=== PATIENT | female | born 1985 | race Two or more races ===

== ENCOUNTER 2018-04-13 06:43 | Emergency (ER) | payer OTHER ==
[2018-04-13 06:52] VITALS: BP 126/86; PULSE 88; TEMP 98; BMI 36.0
--- NOTE | 2018-04-13 07:22 | PDOC ---
History of Present Illness - General Chief Complaint: Pain, Acute Stated Complaint: LT ANKLE PAIN History Source: Patient Exam Limitations: No Limitations - History of Present Illness Initial Comments: 04/13/18 07:23 Ms Farris is a 33 yo F with a h/o Guzman fracture of the right foot She presents to the ER with a complaint of left ankle pain Pt states she was at a friend's [employer], spent the night dancing She denies direct trauma to the ankle, inversion injury, falls Pain is 8/10, located in the left lateral malleolus (+) swelling Pt has not tried anything to improve her pain Pt is ambulatory but this is painful PMH: denies PSH: Meds: denies ALL: NKDA Social: denies drug or tobacco use FH: non contributory ROS: GENERAL/CONSTITUTIONAL: No: fever, chills CARDIOVASCULAR: No: chest pain, lightheadedness, palpitations, syncope RESPIRATORY: No: cough, shortness of breath, wheezing, hemoptysis, stridor. GASTROINTESTINAL: No: nausea, vomiting, diarrhea, abdominal pain GENITOURINARY: No: dysuria, hematuria MUSCULOSKELETAL: Yes: left ankle pain No: back pain, neck pain SKIN: No:bruising NEUROLOGIC: No: headache, vertigo, paresthesias, weakness PE: GENERAL: The patient is in no acute distress. HEAD: Normal with no signs of trauma. EYES: PERRLA, EOMI, sclera anicteric, conjunctiva clear. ENT: Ears normal, nares patent, oropharynx clear without exudates. Moist mucous membranes. NECK: Normal range of motion, supple without lymphadenopathy, JVD, or masses. LUNGS: Breath sounds equal, clear to auscultation bilaterally. HEART:Regular rate and rhythm, normal S1 and S2 without murmur, rub or gallop. ABDOMEN: Soft, nontender, normoactive bowel sounds. No guarding, no rebound. No masses palpable. EXTREMITIES: Normal range of motion NEUROLOGICAL: Cranial nerves II through XII grossly intact. Normal speech. No focal neurological deficits. MUSCULOSKELETAL: No deformities, swelling, ecchymosis of the lower extremities bilaterally. No tenderness to palpation of the DIPs, PIPs, MTPs, phalanges, metatarsals, tarsals, medial malleolus, Achilles, tibia, fibula, knee, hip bilaterally. (+) Left lateral malleolus tender to palpation. Full range of motion of the lower extremities intact. Patient able to bear weight. Ambulating with a limp. Dorsalis pedis and posterior tibialis pulses 2+ and equal bilaterally. Capillary refill less than 2 seconds bilaterally. Neurologic: The patient is awake, alert, oriented x3. Gross motor and sensory exam is found to be intact. Sensation of distal lower extremities intact. 5/5 muscle strength of the lower extremities. DTRs, Achilles, patellar 1-2+ and equal bilaterally. SKIN: Warm, Dry, normal turgor, no rashes or lesions noted. 04/13/18 07:37 04/13/18 09:31 Past History - Past Medical History Allergies/Adverse Reactions: Allergies Allergy/AdvReac Type Severity Reaction Status Date / Time No Known Allergies Allergy Verified 11/27/14 18:29 Home Medications: Ambulatory Orders Acetaminophen W/ Codeine #3 [Tylenol # 3 -] 1 tab PO Q8H PRN #9 tablet MDD 3 06/21 Asthma: Yes COPD: No - Suicide/Smoking/Psychosocial Hx Smoking History: Current some day smoker Number of Cigarettes Smoked Daily: 3 Information on smoking cessation initiated: Yes 'Breaking Loose' booklet given: 04/13/18 Hx Alcohol Use: Yes (OCCASIONALLY) Substance Use Type: Alcohol *Physical Exam - Vital Signs Last Vital Signs Temp Pulse Resp BP Pulse Ox 98 F 88 18 126/86 99 04/13/18 06:49 04/13/18 06:49 04/13/18 06:49 04/13/18 06:49 04/13/18 06:49 Medical Decision Making - Medical Decision Making 04/13/18 07:42 Clinical impression: Most likely ankle sprain as x-ray demonstrated no sign of fracture. Patient placed in air case and given NSAIDS for pain, [with crutches and instructions], told to rest it for at least 1 week or until feeling better. RICE Pt directed to follow up with PCP/Referral within 24-48 hours and to go to ED if they develop any new worsening symptoms. Pt expressed understanding and agreement with above stated plan. Clinical Impression: ankle sprain, initial presentation *DC/Admit/Observation/Transfer Diagnosis at time of Disposition: Left ankle sprain Qualifiers: Encounter type: initial encounter Involved ligament of ankle: other ligament Qualified Code(s): S93.492A - Sprain of other ligament of left ankle, initial encounter - Discharge Dispostion Disposition: HOME Condition at time of disposition: Stable Decision to Admit order: No - Prescriptions Prescriptions: Acetaminophen W/ Codeine #3 [Tylenol # 3 -] 1 tab PO Q8H PRN #9 tablet MDD 3 PRN Reason: Severe Pain - Referrals Referrals: Reese Peguero MD [Staff Physician] - - Patient Instructions Printed Discharge Instructions: DI for Ankle Sprain Additional Instructions: Ms Farris, Today you were seen for ankle pain and the X-ray demonstrated no signs of fracture (broken bone), for that reason it is more likely a sprain based on your symptoms and the appearance and exam findings of your ankle. Please be sure to rest, ice and elevate it and to avoid bearing weight until feeling better. Follow up with your primary cares office, or the referral weve provided you within 24 hours to inform them of todays visit and to see if they would like to /need to see you. Take motrin 600mg every 8 hours for pain Please take Tylenol #3 for severe pain, no driving no use of heavy machinery, no working while taking this medication Thank you for giving us the opportunity to care for you - Post Discharge Activity Forms/Work/School Notes: Back to Work
[2018-04-13] MEDS ORDERED: IBUPROFEN 600 MG TABLET (FP) PO ONE ×2 (07:23→07:49)
== END 2018-04-13 08:52 | disposition home or self-care (01) ==
LOC: FER 06:43
DX: S93.492A Sprain of other ligament of left ankle, initial encounter (principal); X58.XXXA Exposure to other specified factors, initial encounter; Y93.89 Activity, other specified; Y92.9 Unspecified place or not applicable; F17.210 Nicotine dependence, cigarettes, uncomplicated; J45.909 Unspecified asthma, uncomplicated
CPT/HCPCS: 73610-TC-LT-FY; 73630-TC-LT; 84703; 99282-25